=== PATIENT | male | born 1985 ===

== ENCOUNTER 2018-08-04 15:01 | Emergency (ER) | payer BC, OTHER ==
[2018-08-04 15:08] VITALS: BP 140/81
--- NOTE | 2018-08-04 15:28 | UC ---
Skin Complaint HPI - HPI Summary HPI Summary: pt states he started to get mnor redness R hand 2-3 days ago, no known injury. last night got swollen and he cut area with knife - no drainage came out Today painful and redness is spreading - History of Current Complaint Chief Complaint: UCUpperExtremity Time Seen by Provider: 08/04/18 15:02 Stated Complaint: HAND COMPLAINT Hx Obtained From: Patient Onset/Duration: Gradual Onset Pain Intensity: 0 Character: Swelling, Redness, Painful Aggravating Factor(s): Touch Alleviating Factor(s): Nothing Associated Signs & Symptoms: Positive: Tenderness, Red Streaks. Negative: Nausea, Fever, Chills - Allergy/Home Medications Allergies/Adverse Reactions: Allergies Allergy/AdvReac Type Severity Reaction Status Date / Time No Known Allergies Allergy Verified 08/04/18 15:08 PMH/Surg Hx/FS Hx/Imm Hx Previously Healthy: Yes - Surgical History Surgical History: None - Family History Known Family History: Positive: None Negative: Hypertension, Diabetes - Social History Occupation: Employed Full-time - [employer] Lives: With Family Alcohol Use: Occasionally Substance Use Type: None Smoking Status (MU): Former Smoker - Immunization History Hx Tetanus, Diphtheria Vaccination: Yes - 1 year ago Review of Systems All Other Systems Reviewed And Are Negative: Yes Constitutional: Positive: Negative Skin: Negative: Rash Respiratory: Positive: Negative Cardiovascular: Positive: Negative Neurological: Positive: Negative Psychological: Positive: Negative Is Patient Immunocompromised?: No Physical Exam Triage Information Reviewed: Yes Appearance: Well-Appearing, No Pain Distress, Well-Nourished Vital Signs: Initial Vital Signs Temp 98.1 F 08/04/18 15:05 Pulse 73 08/04/18 15:05 Resp 16 08/04/18 15:05 BP 140/81 08/04/18 15:05 Pulse Ox 100 08/04/18 15:05 Vital Signs Reviewed: Yes Neck: Positive: No Lymphadenopathy Respiratory Exam: Normal Cardiovascular Exam: Normal Musculoskeletal Exam: Normal Musculoskeletal: Positive: Strength Intact, ROM Intact Neurological Exam: Normal Neurological: Positive: Alert Psychological Exam: Normal Skin Exam: Other - erythema and swelling palmar surface hand near base of thumb , no fluctuance, painful when pressure applied. faint redness extends to wrist Course/Dx - Differential Diagnoses - Skin Complaint Differential Diagnoses: Abscess, Cellulitis - Diagnoses Provider Diagnosis: Cellulitis Discharge - Sign-Out/Discharge Documenting (check all that apply): Patient Departure All imaging exams completed and their final reports reviewed: No Studies - Discharge Plan Condition: Good Disposition: HOME Prescriptions: Cephalexin CAP* [Keflex 500 CAP*] 500 mg PO QID #28 cap Patient Education Materials: Cellulitis (ED) Referrals: No Primary Care Phys,NOPCP [Primary Care Provider] - 2 Days (your primary care provider or urgent care for recheck hand and blood presure) Additional Instructions: elevate hand and apply warm soaks start antibotic today and finish as directed report to ER if you develop fever/chills or worsening symptoms - Billing Disposition and Condition Condition: GOOD Disposition: Home - Attestation Statements Provider Attestation: I was available for consult. This patient was seen by the ZEFERINO. The patient was not presented to , seen by or examined by -Carolina Andujar MD
== END 2018-08-04 15:40 | disposition home or self-care (01) ==
LOC: UCEAST 15:01
DX: L03.113 Cellulitis of right upper limb (principal); Z87.891 Personal history of nicotine dependence
CPT/HCPCS: 99202; G0463